=== PATIENT | female | born 1955 | race Caucasian/White ===

== ENCOUNTER 2016-07-05 09:35 | Emergency (ER) | payer MEDICAID ==
[2016-07-05] MEDS ORDERED: IBUPROFEN 600 MG TAB PO ONE (09:48)
[2016-07-05 10:57] VITALS: BP 135/58; PULSE 55; RESP 16; TEMP 97.7; O2SAT 98
--- NOTE | 2016-07-05 11:27 | DX ---
Left Wrist, Four Views 10:27 a.m. Clinical History: 60-year-old female with left wrist pain, and no known trauma. Comparison Study: None. Findings: Bone mineralization is preserved. There is no fracture, dislocation, lytic or blastic lesio n, or marginal erosion. There is some mild degenerative narrowing at the navicular-greater multangula r articulation. There is no soft tissue calcification. The pronator fat pad is not displaced. Impression: 1. There is no acute osseous abnormality. 2. Mild degenerative change at the navicular-greater multangular articulation.
--- NOTE | 2016-07-05 12:11 | UCPHY ---
H & P Time Seen by Provider: 07/05/16 10:07 Patient Type: Established HPI/ROS: This patient has achy pain to the left wrist started over the past 24 hours. 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 She complains of sharp pain that is worse with movement to the wrist. The baseline intensity is 5/10 that goes to his severe pain with flexion or extension. She states the pain is most notable on the palmar aspect of the wrist but also there is some dorsal pain. She states that feels similar to an episode of right wrist carpal tunnel syndrome that she had 15 years ago. She had a surgical decompression with improvement while living in a different state. ROS: No fevers or other constitutional symptoms. Neuro: She reports mild tingling in the radial nerve distribution long the thumb and index finger of the affected hand. No other neuro symptoms. No recent trauma. Cardiovascular: No pallor or discoloration. 5 point ROS is otherwise negative. Past Medical/Surgical History: Right-handed carpal tunnel Psychiatric history Smoking Status: Never smoked Physical Exam: Physical Exam Vital signs are normal. General: No acute distress Eyes: Pupils equal and react to light. Extraocular motions are intact. Lungs: No respiratory distress. Cardiac: Brisk capillary refill is intact throughout. Pulses are 2+ and symmetric in the affected extremity. Skin: No rash or pallor. No erythema or discoloration. Extremities: Atraumatic normal except for left wrist Left wrist: Patient has tenderness to the volar aspect/palmar aspect of the wrist with positive Tinel's and Phalen's tests. No swelling or ecchymosis. She has mild limitation in flexion extension due to pain. Neuro: Alert with no sensorimotor deficits. SHe maintains normal light touch sensory exam and motor exam despite her paresthesias Initial differential diagnosis: Carpal tunnel syndrome, radial nerve compression, bony lesion Constitutional: Initial Vital Signs Temperature (C) 36.5 C 07/05/16 09:44 Heart Rate 55 L 07/05/16 09:44 Respiratory Rate 16 07/05/16 09:44 Blood Pressure 135/58 H 07/05/16 09:44 O2 Sat (%) 98 07/05/16 09:44 O2 Delivery Mode Room Air Allergies/Adverse Reactions: egg [eggs] Allergy (Severe, Verified 07/05/16 09:47) Anaphylaxis Sulfa (Sulfonamide Antibiotics) Allergy (Severe, Verified 07/05/16 09:47) Anaphylaxis Home Medications: Medication Instructions Recorded Seroquel 06/07/14 Topamax 06/07/14 Hydrocodone/APAP 5/325 [[place] 1 - 2 tab PO Q4PRN PRN #20 tab 07/05/16 5/325 (*)] Ibuprofen [Motrin (*)] 600 mg PO Q6 PRN #30 tab 07/05/16 Medical Decision Making - Diagnostics Imaging: Wrist x-ray: Minimal DJD. Otherwise normal. Films read by the radiologist but also reviewed the film. ED Course/Re-evaluation: Patient is placed in a Velcro wrist splint I counseled her regarding carpal tunnel syndrome. She will follow up with hand surgeon for further evaluation - Data Points Medications Given: Discontinued Medications Ibuprofen (Motrin) 600 mg PO EDNOW ONE Stop: 07/05/16 09:49 Last Admin: 07/05/16 09:56 Dose: 600 mg Departure - Departure Disposition: Home, Routine, Self-Care Clinical Impression: Carpal tunnel syndrome of left wrist Condition: Good Instructions: Musculoskeletal Pain (ED) Additional Instructions: Diagnosis: Left carpal tunnel syndrome Plan: Ibuprofen, splint at all times initially Tylenol or hydrocodone/Tylenol as needed for pain control. No driving, alcohol or come hydrocodone Stool softener while on hydrocodone to prevent constipation limit activity until sx's improved. Call Dr. Campuzano-hand specialist arrange follow-up appointment for further evaluation. Referrals: [facility],. [Primary Care Provider] - As per Instructions Ayan Campuzano MD [Medical Doctor] - As per Instructions Stand Alone Forms: Work Excuse Prescriptions: Ibuprofen [Motrin (*)] 600 mg PO Q6 PRN #30 tab PRN Reason: Pain Hydrocodone/APAP 5/325 [[place] 5/325 (*)] 1 - 2 tab PO Q4PRN PRN #20 tab PRN Reason: Pain - PQRS PQRS Measurement: NA
== END 2016-07-05 12:23 | disposition home or self-care (01) ==
LOC: CED 09:35
DX: G56.02 Carpal tunnel syndrome, left upper limb (principal)
CPT/HCPCS: 73110-PO; G0463-PO; L3908

== ENCOUNTER 2016-12-30 12:19 | Observation (INO) | payer MEDICAID ==
[2016-12-30] MEDS ORDERED: ASPIRIN 81 MG CHEWABLE TAB PO ONE (12:22)
--- NOTE | 2016-12-30 12:35 | CPEKG ---
Heart Rate: 65 RR Interval: 923 P-R Interval: 180 QRSD Interval: 86 QT Interval: 420 QTC Interval: 437 P Britton: 34 QRS Britton: -38 T Wave [place]: 77 EKG Severity - BORDERLINE ECG - EKG Impression: SINUS RHYTHM EKG Impression: LEFT AXIS DEVIATION EKG Impression: BORDERLINE T ABNORMALITIES, ANT-LAT LEADS Electronically Signed By: Keny Jeong 30-Dec-2016 14:01:38
[2016-12-30] MEDS ORDERED: NITROGLYCERIN 0.4 MG BTL SL PRN ×2 (12:51→16:14)
[2016-12-30] MEDS ORDERED: NS 1,000 ML IV ONE (12:52)
--- NOTE | 2016-12-30 12:57 | EDPHY ---
H & P Stated Complaint: cp this am . tight band . woke up from sleep . "Lots of stress " Time Seen by Provider: 12/30/16 12:27 HPI/ROS: This patient was awakened at 4:30 a.m. by substernal chest pressure 6/10 intensity associated with nausea. The symptoms resolved without intervention after approximately 6 minutes and she fell back asleep but was awakened again at 6:30 a.m. with chest pressure of similar nature-substernal nonradiating more mild intensity but persistent since 12/17, currently 2/10 intensity. She has associated nausea and dyspnea that is mild. She also reports diaphoresis with her symptoms. Finally, she reports intermittent heart palpitations described as skipped beats. She drove herself here by private vehicle for further evaluation. Prior to this morning symptoms she had felt well other than increased social stressors recently in her life. ROS: Constitutional: No fevers or chills. No significant weakness. HEENT: No recent URI symptoms or other complaints Pulmonary: No coughing. No pleuritic pain. Cardiovascular: No lower extremity swelling or calf pain. Endocrine: No complaints other than diaphoresis GI: Nausea but no vomiting. No abdominal pain. : No complaints Integumentary: No significant pallor or skin rash. Neuro: No complaints new line: Psychiatric: Increase anxiety and stress recently. Complete review of symptoms is otherwise negative. Source: Patient Exam Limitations: No limitations - Personal History Tetanus Vaccine Date: within 10 years - Medical/Surgical History PMH: Patient reports may be a small heart attack 10 years ago while in [place]. She does not have any of the details of this episode. Dyslipidemia Noncompliant with her statin over the last week. Psychiatric Knee replacement The patient reports having had a technically limited (due to fibrocystic breast dz) Cardiac nuc stress at [facility] 2 year goes go prior to knee replacement. She was encouraged to have follow-up workup but never pursued this. Former IV drug user-clean for 20 years Hx Asthma: No Hx Chronic Respiratory Disease: No Hx Diabetes: No Hx Cardiac Disease: No Hx Renal Disease: No Hx Cirrhosis: No Hx Alcoholism: No Hx HIV/AIDS: No Hx Splenectomy or Spleen Trauma: No Other PMH: Depression, anxiety, ADD, very tiny , high cholesterol, arthritis. Sx : hysterectomy, pelvic reconstruction, ear tubes, ortho, tonsils. B Knee meniscus repair, R TKA, HEP C+. 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 ) - Social History Smoking Status: Never smoked Alcohol Use: None Drug Use: Other Additional Social History: Clean from IV drug abuse for 20 years - Physical Exam Exam: General Appearance: Alert, no distress. Eyes: Pupils equal and round no pallor or injection. ENT, Mouth: Mucous membranes moist. Respiratory: There are no retractions, lungs are clear to auscultation. Cardiovascular: Regular rate and rhythm. No murmur gallop rub. No peripheral edema or calf tenderness. No chest wall tenderness Gastrointestinal: Abdomen is soft and nontender, no masses, bowel sounds normal. Neurological: GCS 15 with no deficits Skin: Warm and dry, no rashes. Musculoskeletal: Neck is supple nontender. Extremities are symmetrical, full range of motion. Psychiatric: Mood and affect are currently normal. DIFFERENTIAL DIAGNOSIS: After history and physical exam differential diagnosis was considered for coronary syndrome, ME, GERD with esophageal spasm, PE, pneumonia, pneumothorax, dissecting aortic aneurysm Constitutional: Initial Vital Signs Temperature (C) 36.7 C 12/30/16 12:20 Heart Rate 70 12/30/16 12:20 Respiratory Rate 16 12/30/16 12:20 Blood Pressure 123/83 H 12/30/16 12:20 O2 Sat (%) 96 12/30/16 12:20 O2 Delivery Mode Room Air Allergies/Adverse Reactions: egg [eggs] Allergy (Severe, Verified 12/30/16 12:56) Anaphylaxis Sulfa (Sulfonamide Antibiotics) Allergy (Severe, Verified 12/30/16 12:56) Anaphylaxis Home Medications: Medication Instructions Recorded Seroquel 06/07/14 Topamax 06/07/14 Concerta 12/30/16 Medical Decision Making - Diagnostics EKG Interpretation: 12 lead EKG performed at 12:23 p.m. reveals sinus rhythm at 65 Intervals: Normal throughout [place]: P of 34, QRS of-30, T of 77 ST segments are notable for T-wave inversion in V2 and V3. Overall assessment sinus rhythm with anterior T-wave abnormalities-cannot rule out ischemic changes. No previous EKGs available for comparison. Please refer to trace master for complete read Imaging Results: Imaging Impressions Chest X-Ray 12/30/16 12:51 Impression: Normal chest x-ray. Portable chest x-ray: Normal by my interpretation ED Course/Re-evaluation: Aspirin 324 p.o. arrival IV, monitor, supple nitroglycerin I counseled patient regarding her cardiac risk factors and symptoms warranting admission. Shortly after 1:00 p.m. the patient is chest pain-free after 1 supple nitroglycerin complains of a headache, treated with Tylenol p.o. in 0.5 inch nitropaste. EKG is repeated to evaluate for interval change. Given heart rate of 60 and SBP 106, I held on a beta-oscar for this patient. A review of the patient's labs reveals negative D-dimer, normal troponin, normal electrolytes, minimal leukocytosis. Discussion: Patient with cardiac risk factors of dyslipidemia that is untreated and a family history of ME with chest pain associated with dyspnea diaphoresis and nausea with an EKG revealing T-wave inversions anteriorly concerning for possible cardiac ischemia. However, her initial troponin is negative despite several hours of symptoms. She does warrant admission for further treatment she is currently chest pain-free with nitrates and aspirin on board. I spoke with Magnolia Akhtar who accepts the patient for Dr. Kenneth Garcia-hospitalist for transfer to [facility]. I spoke with Conner, mid-level practitioner with [facility]. Cardiology will consult on the patient. I counseled the patient regarding her test results, diagnosis and plan. She remained comfortable and chest pain-free after her initial nitro - Data Points Laboratory Results: Laboratory Results 12/30/16 12:30 12/30/16 12:30 12/30/16 12/30/16 12/30/16 12:30 12:30 12:30 WBC 3.81 10^3/uL 10^3/uL (3.80-9.50) RBC 5.32 10^6/uL 10^6/uL (4.18-5.33) Hgb 15.7 g/dL g/dL (12.6-16.3) Hct 44.6 % % (38.0-47.0) MCV 83.8 fL fL (81.5-99.8) MCH 29.5 pg pg (27.9-34.1) MCHC 35.2 g/dL g/dL (32.4-36.7) RDW 12.9 % % (11.5-15.2) Plt Count 233 10^3/uL 10^3/uL (150-400) MPV 10.6 fL fL (8.7-11.7) Neut % (Auto) 62.1 % % (39.3-74.2) Lymph % (Auto) 23.4 % % (15.0-45.0) [place] % (Auto) 7.9 % % (4.5-13.0) Eos % (Auto) 4.5 % % (0.6-7.6) Baso % (Auto) 1.8 % H % (0.3-1.7) Nucleat RBC Rel Count 0.0 % % (0.0-0.2) Absolute Neuts (auto) 2.37 10^3/uL 10^3/uL (1.70-6.50) Absolute Lymphs (auto) 0.89 10^3/uL L 10^3/uL (1.00-3.00) Absolute Monos (auto) 0.30 10^3/uL 10^3/uL (0.30-0.80) Absolute Eos (auto) 0.17 10^3/uL 10^3/uL (0.03-0.40) Absolute Basos (auto) 0.07 10^3/uL 10^3/uL (0.02-0.10) Absolute Nucleated RBC 0.00 10^3/uL 10^3/uL (0-0.01) Immature Gran % 0.3 % % (0.0-1.1) Immature Gran # 0.01 10^3/uL 10^3/uL (0.00-0.10) PT 12.3 SEC SEC (12.0-15.0) INR 0.94 (0.83-1.16) APTT 27.9 SEC SEC (23.0-38.0) D-Dimer 0.36 ug/mLFEU ug/mLFEU (0.00-0.50) Sodium 142 mEq/L mEq/L (134-144) Potassium 4.1 mEq/L mEq/L (3.5-5.2) Chloride 106 mEq/L mEq/L (97-110) Carbon Dioxide 22 mEq/l mEq/l (22-31) Anion Gap 14 mEq/L mEq/L (8-16) BUN 17 mg/dL mg/dL (7-23) Creatinine 1.0 mg/dL mg/dL (0.6-1.0) Estimated GFR 56 Glucose 84 mg/dL mg/dL (70-100) Calcium 9.5 mg/dL mg/dL (8.5-10.4) Troponin I < 0.012 ng/mL ng/mL (0-0.034) Medications Given: Discontinued Medications Acetaminophen (Tylenol) 975 mg PO EDNOW ONE Stop: 12/30/16 13:03 Last Admin: 12/30/16 13:08 Dose: 975 mg Aspirin (Aspirin) 324 mg PO EDNOW ONE Stop: 12/30/16 12:23 Last Admin: 12/30/16 12:28 Dose: 324 mg Sodium Chloride (Ns) 1,000 mls @ 0 mls/hr IV ONCE ONE PRN Reason: Wide Open Stop: 12/30/16 12:53 Last Admin: 12/30/16 12:55 Dose: 1,000 mls Metoprolol Tartrate (Lopressor Injection) 5 mg IVP EDNOW ONE Stop: 12/30/16 13:25 Last Admin: 12/30/16 13:26 Dose: Not Given Nitroglycerin (Nitrostat) 0.4 mg SL Q5M PRN PRN Reason: Chest Pain Stop: 12/30/16 13:02 Last Admin: 12/30/16 12:55 Dose: 0.4 mg Nitroglycerin (Nitro-Bid 2%) 0.5 inch TP EDNOW ONE Stop: 12/30/16 13:03 Last Admin: 12/30/16 13:09 Dose: 0.5 inch Departure - Departure Disposition: [facility] Inpatient Acute Clinical Impression: Acute chest pain, Anterior T wave inversion Condition: Fair
[2016-12-30 13:00] LABS: % IMMATURE GRANULYOCYTES 0.3 % (0.0-1.1); ABSOLUTE IMMATURE GRANULOCYTES 0.01 10^3/uL (0.00-0.10); ADD DIFF? NO; ADD MORPH? NO; ADD SCAN? NO; ATYPICAL LYMPHOCYTE FLAG 10 (0-99); FRAGMENT RBC FLAG 0 (0-99); HEMATOCRIT 44.6 % (38.0-47.0); HEMOGLOBIN 15.7 g/dL (12.6-16.3); LEFT SHIFT FLG 0 (0-99); LIPEMIA HEMOLYSIS FLAG 90 (0-99); MEAN CELL HEMOGLOBIN 29.5 pg (27.9-34.1); MEAN CELL HEMOGLOBIN CONCENTR. 35.2 g/dL (32.4-36.7); MEAN CELL VOLUME 83.8 fL (81.5-99.8); MEAN PLATELET VOLUME 10.6 fL (8.7-11.7); PLATELET CLUMPS FLAG 0 (0-99); PLATELET COUNT 233 10^3/uL (150-400); RED BLOOD CELL COUNT 5.32 10^6/uL (4.18-5.33); RED CELL DISTRIBUTION WIDTH 12.9 % (11.5-15.2)
[2016-12-30 13:01] LABS: APTT 27.9 SEC (23.0-38.0)
[2016-12-30 13:02] LABS: ANION GAP 14 mEq/L (8-16); CALCIUM 9.5 mg/dL (8.5-10.4); CARBON DIOXIDE 22 mEq/l (22-31); CHLORIDE 106 mEq/L (97-110); GLOMERULAR FILTRATION RATE 56; GLUCOSE 84 mg/dL (70-100); POTASSIUM 4.1 mEq/L (3.5-5.2); SODIUM 142 mEq/L (134-144)
[2016-12-30] MEDS ORDERED: NITROGLYCERIN 2% 1 GM PACKET TP ONE (13:02)
[2016-12-30] MEDS ORDERED: ACETAMINOPHEN 325 MG TAB PO ONE (13:02)
--- NOTE | 2016-12-30 13:08 | CPEKG ---
Heart Rate: 56 RR Interval: 1071 P-R Interval: 188 QRSD Interval: 92 QT Interval: 440 QTC Interval: 425 P Readfield: 14 QRS Readfield: -34 T Wave [place]: 78 EKG Severity - BORDERLINE ECG - EKG Impression: SINUS RHYTHM EKG Impression: LEFT AXIS DEVIATION EKG Impression: BORDERLINE T ABNORMALITIES, ANT-LAT LEADS Electronically Signed By: Keny Jeong 30-Dec-2016 14:01:22
[2016-12-30 13:10] LABS: INR 0.94 (0.83-1.16); PROTIME(PATIENT) 12.3 SEC (12.0-15.0)
[2016-12-30 13:14] LABS: TROPONIN I < 0.012 ng/mL (0-0.034)
[2016-12-30] MEDS ORDERED: METOPROLOL TARTRATE 5 MG/5 ML INJ IVP ONE (13:24)
[2016-12-30] MEDS ORDERED: ONDANSETRON DISINTEGRATING 4 MG TAB PO PRN (16:18)
[2016-12-30] MEDS ORDERED: ONDANSETRON 4 MG/2 ML VIAL IVP PRN (16:18)
[2016-12-30] MEDS ORDERED: METHYLPHENIDATE HCL PO PRN (16:20)
--- NOTE | 2016-12-30 16:24 | PDGENHP ---
History and Physical - Chief Complaint Acute chest pain - History of Present Illness PCP: [facility] HPI: 61 yo F p/w acute chest pain characterized as Bandlike pain located in the substernal area with associated nausea, dyspnea, diaphoresis, palpitations. Pain onset was 4:30 a.m. the day of this presentation and occurred at rest. Duration was approximately 6 minutes and then it subsided without any intervention. The pain recurred at 6:30 a.m. then has been fairly constant throughout the day until was alleviated by nitroglycerin paste at urgent care. Pain seems to be exacerbated by and accompanied by significant anxiety which the patient has been experiencing over the past 48 hours. The patient has otherwise been taking a fairly regular supply of nonsteroidal anti-inflammatory medications to help her deal with the stress of the past 48 hours. History Information - Allergies/Home Medication List Allergies/Adverse Reactions: egg [eggs] Allergy (Severe, Verified 12/30/16 12:56) Anaphylaxis Sulfa (Sulfonamide Antibiotics) Allergy (Severe, Verified 12/30/16 12:56) Anaphylaxis Home Medications: QUEtiapine FUMARATE [Seroquel 25 mg (*)] 25 mg PO HS 06/07/14 [Last Taken ] Topiramate [Topamax 100MG (*)] 100 mg PO HS 06/07/14 [Last Taken 12/29/16] METHYLPHENIDATE HCL [Concerta 18 mg] 18 mg PO DAILY PRN 12/30/16 [Last Taken Unknown] I have personally reviewed and updated: family history, medical history, social history, surgical history - Past Medical History coronary artery disease ( Abnormal nuclear stress test in 2016) Additional medical history: recurrent urinary tract infections, most recently treated 1 month ago. Chronic back pain. Hyperlipidemia. Reported myocardial infarction 10 years ago without cardiac catheterization at that time, normal ejection fraction at that time. Significant anxiety disorder - Surgical History Additional surgical history: total knee replaced - Family History Additional family history: mother with myocardial infarction prior to the age of 65, also allergic to IV contrast dye - Social History Smoking Status: Never smoked Alcohol Use: Sober Drug Use: Other ( patient reports significant drug use history including methamphetamine but she has been sober for many years) Review of Systems ROS: 10pt was reviewed & negative except for what was stated in HPI & below Cardiac: Reports: chest pain, palpitations, other ( diaphoresis) Respiratory: Reports: other ( dyspnea) Physical Exam Temp Pulse Resp BP Pulse Ox 36.7 C 64 16 102/72 96 12/30/16 14:28 12/30/16 14:28 12/30/16 14:28 12/30/16 14:28 12/30/16 14:28 Constitutional: appears nourished, not in pain, No uncomfortable Eyes: PERRL, anicteric sclera, EOMI Ears, Nose, Mouth, Throat: moist mucous membranes, hearing normal, ears appear normal, no oral mucosal ulcers Cardiovascular: regular rate and rhythym, no murmur, rub, or gallop, No edema Respiratory: no respiratory distress, no rales or rhonchi, clear to auscultation Gastrointestinal: normoactive bowel sounds, soft, non-tender abdomen, no palpable masses Skin: warm, normal color, no rashes or abrasions, no fluctuance, no induration, other ( many tattoos), No mottled Neurologic: AAOx3, sensation intact bilaterally, No facial droop Psychiatric: not encephalopathic, anxious, other ( speech occasionally pressured , redirectable), No agitated Lab Data & Imaging Review 12/30/16 12:30 12/30/16 12:30 WBC 3.81 10^3/uL (3.80-9.50) 12/30/16 12:30 RBC 5.32 10^6/uL (4.18-5.33) 12/30/16 12:30 Hgb 15.7 g/dL (12.6-16.3) 12/30/16 12:30 Hct 44.6 % (38.0-47.0) 12/30/16 12:30 MCV 83.8 fL (81.5-99.8) 12/30/16 12:30 MCH 29.5 pg (27.9-34.1) 12/30/16 12:30 MCHC 35.2 g/dL (32.4-36.7) 12/30/16 12:30 RDW 12.9 % (11.5-15.2) 12/30/16 12:30 Plt Count 233 10^3/uL (150-400) 12/30/16 12:30 MPV 10.6 fL (8.7-11.7) 12/30/16 12:30 Neut % (Auto) 62.1 % (39.3-74.2) 12/30/16 12:30 Lymph % (Auto) 23.4 % (15.0-45.0) 12/30/16 12:30 [place] % (Auto) 7.9 % (4.5-13.0) 12/30/16 12:30 Eos % (Auto) 4.5 % (0.6-7.6) 12/30/16 12:30 Baso % (Auto) 1.8 % (0.3-1.7) H 12/30/16 12:30 Nucleat RBC Rel Count 0.0 % (0.0-0.2) 12/30/16 12:30 Absolute Neuts (auto) 2.37 10^3/uL (1.70-6.50) 12/30/16 12:30 Absolute Lymphs (auto) 0.89 10^3/uL (1.00-3.00) L 12/30/16 12:30 Absolute Monos (auto) 0.30 10^3/uL (0.30-0.80) 12/30/16 12:30 Absolute Eos (auto) 0.17 10^3/uL (0.03-0.40) 12/30/16 12:30 Absolute Basos (auto) 0.07 10^3/uL (0.02-0.10) 12/30/16 12:30 Absolute Nucleated RBC 0.00 10^3/uL (0-0.01) 12/30/16 12:30 Immature Gran % 0.3 % (0.0-1.1) 12/30/16 12:30 Immature Gran # 0.01 10^3/uL (0.00-0.10) 12/30/16 12:30 PT 12.3 SEC (12.0-15.0) 12/30/16 12:30 INR 0.94 (0.83-1.16) 12/30/16 12:30 APTT 27.9 SEC (23.0-38.0) 12/30/16 12:30 D-Dimer 0.36 ug/mLFEU (0.00-0.50) 12/30/16 12:30 Sodium 142 mEq/L (134-144) 12/30/16 12:30 Potassium 4.1 mEq/L (3.5-5.2) 12/30/16 12:30 Chloride 106 mEq/L (97-110) 12/30/16 12:30 Carbon Dioxide 22 mEq/l (22-31) 12/30/16 12:30 Anion Gap 14 mEq/L (8-16) 12/30/16 12:30 BUN 17 mg/dL (7-23) 12/30/16 12:30 Creatinine 1.0 mg/dL (0.6-1.0) 12/30/16 12:30 Estimated GFR 56 12/30/16 12:30 Glucose 84 mg/dL (70-100) 12/30/16 12:30 Calcium 9.5 mg/dL (8.5-10.4) 12/30/16 12:30 Troponin I < 0.012 ng/mL (0-0.034) 12/30/16 12:30 Visualized and Interpreted Chest x-ray results: Yes Chest X-Ray results: no infiltrate Visualized and Interpreted EKG results: Yes EKG Interpretation: Positive for: other ( T-wave inversions in lead V2 through V4) Assessment & Plan Assessment: 61-year-old female presents with acute chest pain in the setting of known abnormal nuclear stress test, reported previous [place] Plan: 1. Chest pain. Acute, new problem this provider, further workup indicated. High risk for acute coronary syndrome and unstable angina given abnormal new could and reported [place], responded well to nitroglycerin paste -reviewed outside records including 07/24/2015 nuclear medicine MPI report demonstrating small distal area of reducible and ischemia -discussed with Conner Stafford from Cardiology, he has reported to me that the cardiology service will plan on cardiac catheterization tomorrow a.m., sooner if troponins positive or if chest pain recurrent -continue to cycle troponins, monitor on telemetry -she has received aspirin, beta-blockers ordered, continue nitropaste -will require pretreatment for the cardiac catheterization given her significant allergy to IV contrast dye -get a.m. lipid panel and hemoglobin A1c 2. Anxiety disorder. Chronic, significant, may be contributing to and exacerbating her current presentation -patient has good insight, recommend that she continue to follow up with her outpatient mental health provider -continue home medications Diet. Cardiac, NPO after midnight Prophylaxis. Moderate risk patient, Lovenox 40 Code. Full Disposition. Anticipated discharge is 12/31/2016, pending further workup as outlined above.
[2016-12-30] MEDS: ACETAMINOPHEN 325 MG TAB PO PRN (20:39)
--- NOTE | 2016-12-30 21:18 | GCON ---
[f rep st] CONSULTATION CARDIOLOGY CONSULTATION DATE OF CONSULTATION: 12/30/2016 REASON FOR CONSULTATION: Abnormal electrocardiogram, chest pressure, known history of coronary artery disease. HISTORY OF PRESENT ILLNESS: The patient is a 61-year-old female who has been seen by our practice in the past. She reports a previous history of coronary artery disease and hyperlipidemia. She reports also reports a past history of myocardial infarction and CAD when she lived in in [place] 10 years ago, but denies of ever actually having a coronary angiogram or PCI. She did see Cardiology while she was out there. She was also noted (when last seen in our office) of undergoing exercise treadmill MPI study on July 24, 2015, which showed no significant ST shifts with exercise, but perfusion imaging did show a small-size, mild-intensity, reversible, gth-ea-caicwi, anterior deficit consistent with ischemia. She had no transient ischemic dilation, and her ejection fraction was normal at 68%, with no wall motion abnormalities. She was supposed to follow up with our practice, which she reports she never did. She reports today, waking at 4:30 this morning, reporting a sudden onset of chest pressure, reporting it as a "bandlike sensation" around her chest. It was not significantly severe and she was able to go back to sleep, reporting waking up again around 7:30 this morning, with pressure there with some mild nausea and shortness of breath. She was able to get up, and proceed on with her day, reporting that she has been under great deal of family stress, but after the pain did not "relieve" after a bit, and with her past medical history , she felt it was best for her to be further evaluated. She went to the [facility]. There, she had an electrocardiogram done, showing sinus rhythm with noted inverted T-waves in V1 through V3, left axis deviation. No acute ST elevation noted. She was given sublingual nitroglycerin, and the pain soon resolved. Electrocardiogram repeated after nitroglycerin did show mild improvement in T-wave inversion in V1 through V3, with flattened T-waves in the lateral leads. Her initial troponin was negative at less than 0.012. A D- dimer was less was 0.36. At that point, nitro paste was applied, she reported mild headache, but has had no further episodes of chest pressure. She was sent over to [facility] and has been admitted to the PCU telemetry floor. At current time, the patient reports no further episodes of chest pressure, pain, but does report mild headache. She reports yesterday of having episodes of nausea and diaphoresis, with occasional vomiting. She initially thought this was due to stress, and felt that it had mostly cleared up from yesterday. She reports no recent fevers chills or night sweats. She denies any history of palpitations, orthopnea, PND, lightheadedness, peripheral edema, sudden weight gain, near-syncope, or syncopal events. She denies any history suggestive of TIA or CVA. As stated above, she reports significant family stress, reporting a recent history of pssqdao-ol-iil dying of heart disease and finding out that her fzavme-cc-das has recently been admitted to the hospital. The patient has significant cardiac risk factors that include age, hyperlipidemia, and family history of coronary artery disease, reporting mother had her first NJ at 65. She denies any history of diabetes, smoking, peripheral vascular disease. PAST MEDICAL HISTORY: 1. Questionable NJ 10 years ago in [place]. 2. Adult onset attention deficit order. 3. Hepatitis C. 4. Hyperlipidemia. 5. Anxiety and insomnia. 6. 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 PAST SURGICAL HISTORY: Total right knee done in July of 2015, left wrist metacarpal surgery done in October of 2016, hysterectomy. FAMILY HISTORY: The patient reports a significant family history of coronary artery disease, reporting mother had an NJ at age 65. Mother also has a history of carotid artery disease and previous PCI. She reports her father she did not know well, but reports had some type of heart disease. Also , a half brother who had heart disease 10 years ago. SOCIAL HISTORY: As mentioned above, patient reports she is a recovering heroin and meth user, reporting she has been clean for 20 years. She denies any smoking history. She reports occasional alcohol use, rarely. She is , she has 3 adult children, all alive and well, with a daughter with a history of bipolar, and a middle son with a history of GI problems. She currently works for [employer] in [place]. She lives with her daughter in a basement apartment. She denies any recent illicit drug use. ALLERGIES: The patient reports allergies to eggs, sulfa, and after further questioning, she does report a possible iodine allergy. MEDICATIONS: At home include Topamax 100 mg p.o. q.h.s., 25 mg p.o. q.h.s., Concentra 18 mg p.o. daily p.r.n. The patient also reports a history of being on statin therapy, but reports she has been very compliant with this. REVIEW OF SYSTEMS: A 10-point review of systems was done on the patient. All negative, except as mentioned above. PHYSICAL EXAMINATION TODAY: GENERAL APPEARANCE: A short-statured, mildly obese , female. She is alert and oriented to person, place, time, and situation. Appears to be in no acute distress at this time. CURRENT VITAL SIGNS: Blood pressure 102/70, heart rate 64 sinus rhythm on the monitor, respirations 96% on room air, temperature 36.7 degrees Celsius. HEENT: Head is normocephalic. Lips and tongue are pink and moist with no signs of cyanosis. Conjunctivae pink. NECK: Trachea is midline. +2 carotid pulses bilaterally. No auscultated bruits. No jugular vein distention. RESPIRATORY: Lungs clear to auscultation. No rhonchi, rales or wheezes. No accessory muscle use. No intercostal muscle retraction noted. CARDIAC: Regular rate, regular rhythm, S1, S2, no S3, S4, gallops, rubs or murmur noted. ABDOMEN: Soft, nontender, bowel sounds x4 quadrants. No organomegaly, no palpable masses. SKIN: [place], warm, dry, no cyanosis, no clubbing, no peripheral edema. VASCULAR: +2 carotids bilateral, +2 radials bilateral, +2 dorsal pedal and posterior tibial pulses bilateral. LABORATORY STUDIES: Laboratory studies drawn today show WBC of 3.81, hemoglobin of 15.7, hematocrit of 44.6, platelet count 233. INR 0.94, D-dimer 0.36. Sodium of 142, potassium 4.1, chloride 106, CO2 22, BUN 17, creatinine 1.0, glucose 84. Calcium 9.5. Troponin less than 0.012. LAB STUDIES: Electrocardiograms as mentioned above. Chest x-ray showing no acute cardiopulmonary process. Patient's most recent nuclear stress test done on July 24, 2015, showed no significant ST shifts suggestive of ischemia with exercise, MPI study did show a small-size, medium-intensity, reversible, gkd-bb-wcznks, anterior deficit consistent with ischemia. No transient ischemic dilation, normal LV systolic function, with no wall motion abnormalities, EF of 68%. Reviewing past records in our EMR, we found an echocardiogram note done [place] [facility] dated March 06, 2014, showing LV size is normal, EF of 65% with no evidence of impaired relaxation, mild MR, mild TR, pulmonary artery pressure . Preliminary echocardiogram showing normal ejection fraction, with questionable inferolateral hypokinesis. ASSESSMENT AND PLAN: 1. Chest pressure: A 61-year-old female with a reported history of coronary artery disease, but reports never undergoing angiogram. History of hyperlipidemia and family history of cardiac disease. Reporting episode of chest pressure this morning, with waking her up initially, and repeated again later this afternoon. Also reporting episodes of nausea and diaphoresis yesterday. Reporting, once arrived to the Emergency Department, symptoms resolved with nitroglycerin. She is noted to have an abnormal MPI study (in which she has never followed up with Cardiology) from July of 2015, showing small-size, mid-intensity, reversible, gly-pa-feqawu anterior deficit consistent with ischemia. EKG shows no acute ST elevation. Initial troponin negative. Preliminary echocardiogram showing possible hypokinesis of inferior lateral wall. At this time, it is felt best that we cycle her troponins. She has already had an aspirin. She is currently pain-free. We will make her n.p.o. after midnight, and proceed for her to undergo cardiac catheterization in the morning for further evaluation. Due to possible iodine allergy, we will premedicate her with Benadryl. She has been noted to be bradycardic with heart rates in the 50s. I do not feel that she has adequate candidate for beta blockers at the current time and we will hold off on starting her on anything at this time. We will continue with nitro paste. If her pain does worsen and her troponins do not elevated, she does not need to be fully anticoagulated at this time. But if her troponins do elevate, I would consider then starting her on a heparin drip. If her symptoms worsen throughout the night, or she has significant EKG changes, we can always make her cardiac catheterization more urgent. 2. History of hyperlipidemia: Patient reports a history of hyperlipidemia and reports she had been on statin therapy in the past, but has been noncompliant. We will have her get a fasting lipid and liver panel done tomorrow. 3. History of hepatitis C: The patient reports it has been multiple years since having a lipid panel done. We will have her get a CMP panel done in the morning. Thank you for this consultation. She will remain on telemetry floor overnight. Further recommendations will come post cardiac catheterization. Dr. Gomez of Hospital Services has been notified of our plan for a pending catheterization in the a.m.. /[id number]/MODL MTDD
[2016-12-30] MEDS: TEMAZEPAM 15 MG CAP PO PRN (22:52)
[2016-12-30] MEDS: TOPIRAMATE 100 MG TAB PO SCH (22:53)
[2016-12-30] MEDS: QUEtiapine FUMARATE 25 MG TAB PO SCH (22:53)
[2016-12-31 05:14] LABS: INR 1.1 (0.83-1.16); PROTIME(PATIENT) 14.1 SEC (12.0-15.0)
[2016-12-31 05:15] LABS: APTT 29.2 SEC (23.0-38.0)
[2016-12-31 05:30] LABS: ALANINE AMINOTRANSFERASE 28 IU/L (9-52); ALBUMIN 3.5 g/dL (3.5-5.0); ALKALINE PHOSPHATASE 63 IU/L (38-126); ANION GAP 9 mEq/L (8-16); ASPARTATE AMINOTRANSFERASE 16 IU/L (14-46); BILIRUBIN,TOTAL 0.7 mg/dL (0.1-1.4); CARBON DIOXIDE 18 mEq/l (22-31); CHLORIDE 115 mEq/L (97-110); CHOLESTEROL 257 mg/dL (140-220); CHOLESTEROL/HDL RATIO 6.43 RATIO (1.00-4.44); CREATININE 1.1 mg/dL (0.6-1.0); GLOMERULAR FILTRATION RATE 50; GLUCOSE 92 mg/dL (70-100); HIGH DENSITY LIPOPROTEIN 40 mg/dL (40-85); LDL/HDL RATIO 4.55 RATIO (1.00-3.22); LOW DENSITY LIPOPROTEIN 182 mg/dL (80-100); MAGNESIUM 2.2 mg/dL (1.6-2.3); NON-HIGH DENSITY LIPOPROTEIN 217 mg/dL (90-129); POTASSIUM 4.2 mEq/L (3.5-5.2); SODIUM 142 mEq/L (134-144); TOTAL PROTEIN 5.5 g/dL (6.3-8.2); TRIGLYCERIDE 175 mg/dL (35-135); VERY LOW DENSITY LIPOPROTEINS 35 mg/dL (8-25)
[2016-12-31 05:32] LABS: TROPONIN I < 0.012 ng/mL (0-0.034)
[2016-12-31] MEDS ORDERED: diphenhydrAMINE 25 MG CAP PO ONE (06:00)
[2016-12-31] MEDS ORDERED: NS 1,000 ML IV ONE (06:00)
[2016-12-31] MEDS ORDERED: DIAZEPAM 5 MG TAB PO ONE (06:00)
[2016-12-31] MEDS ORDERED: ASPIRIN EC 325 MG TAB PO ONE ×2 (06:00→10:17)
[2016-12-31] MEDS: ENOXAPARIN 40 MG/0.4 ML SYR SC SCH (07:23)
[2016-12-31] MEDS ORDERED: FAMOTIDINE 20 MG/NACL 50 ML IV ONE (08:00)
[2016-12-31] MEDS ORDERED: FAMOTIDINE 20 MG in NS 100 ML IV ONE (08:00)
[2016-12-31] MEDS ORDERED: methylPREDNISolone SOD SUCC 125 MG/2 ML VIAL IVP ONE (08:00)
--- NOTE | 2016-12-31 08:36 | ECHO ---
[id number] + + [address] : : [place] [address] : : [phone] + + Adult Echocardiographic Report + + :Name: JENNIFER LIMA LStudy Date: 12/30/2016 03:51 PM : : Hospital Admission Number: [id number] : :: 1955 Gender: Female Height: 65 in : :Age: 61 yrs Race: WH Weight: 180 lb : :Reason For Study: Chest pain/Ekg Changes : : BSA: 1.9 meters2: :History: CAD : + + MMode/2D Measurements \T\ Calculations IVSd: 1.3 cm LVIDd: 4.0 cm FS: 40.5 % Ao root diam: LVPWd: 0.99 cm LVIDs: 2.4 cm EDV(Teich): 3.2 cm 69.9 ml LA dimension: ESV(Teich): 2.7 cm 19.7 ml EF(Teich): 71.7 % LVLd ap4: 7.4 cm SV(MOD-sp4): EDV(MOD-sp4): 51.0 ml 76.0 ml LVLs ap4: 6.0 cm ESV(MOD-sp4): 25.0 ml EF(MOD-sp4): 67.1 % Normal Measurement Values: + + :LVIDd (3.5-5.7cm) IVSd (0.6-1.1cm) LVPWd (0.6-1.1cm) Aortic Root (2.0-3.7cm)Left Atrium (1.5-4.0cm): :LV Vol(d) (76-115ml) LV Vol(s) (29-48ml) Ejec Fraction (50-65%)PV [place] (0.6- 1.2m/s) TV [place] (0.4-1.0m/s) : :MV E [place] (0.8-1.0m/s)MV A [place] (0.3-1.0m/s)LVOT [place] (0.7-1.2m/s) Asc Ao [place] ( 0.9-1.8m/s) : + + Doppler Measurements \T\ Calculations MV E max candelario: 83.9 cm/sec Ao V2 max: 127.6 cm/sec MV A max candelario: 58.2 cm/sec Ao max P.5 mmHg MV E/A: 1.4 Left Ventricle The left ventricle is normal in size. There is mild asymmetric left ventricular hypertrophy. Left ventricular systolic function is normal. Ejection Fraction = 65-70%. The left ventricular wall motion is normal. Right Ventricle The right ventricle is normal in size and function. Atria The left atrial size is normal. Right atrial size is normal. The interatrial septum is intact with no evidence for an atrial septal defect. Mitral Valve The mitral valve is normal in structure and function. There is no evidence of mitral valve prolapse. There is no mitral valve stenosis. Tricuspid Valve Normal tricuspid valve. There is trace tricuspid regurgitation. Aortic Valve The aortic valve opens well. There is no aortic stenosis. There is no aortic insufficiency. Pulmonic Valve The pulmonic valve is normal in structure and function. There is no pulmonic valvular regurgitation. Great Vessels The aortic root is normal size. Pericardium/Pleural There is no pericardial effusion. There is a fat pad seen. Conclusion A complete two-dimensional transthoracic echocardiogram was performed (2D, M-mode, Doppler and color flow Doppler). There is mild asymmetric left ventricular hypertrophy. Left ventricular systolic function is normal. Ejection Fraction = 65-70%. The left ventricular wall motion is normal. There is trace tricuspid regurgitation. There is a fat pad seen. No prior echo Final Reading Physician: Dr Lizeth Russell electronically signed on 12/31/2016 08:34 AM Ordering Physician: Conner Stafford Performed By: Marisol Gagnon RDCS
--- NOTE | 2016-12-31 09:01 | CPEKG ---
Heart Rate: 46 RR Interval: 1304 P-R Interval: 208 QRSD Interval: 88 QT Interval: 464 QTC Interval: 406 P Wellington: 10 QRS [place]: -38 T Wave [place]: 44 EKG Severity - OTHERWISE NORMAL ECG - EKG Impression: SINUS BRADYCARDIA EKG Impression: LEFT AXIS DEVIATION EKG Impression: Some diffuse T-wave flattening EKG Impression: No significant change from December 30, 2016 Electronically Signed By: Skinny Doherty 31-Dec-2016 09:46:35
[2016-12-31] MEDS ORDERED: fentaNYL 100 MCG/2 ML INJ ONE ×2 (09:09→11:08)
[2016-12-31] MEDS ORDERED: LIDOCAINE 1% 300 MG/30 ML SDV ONE (09:09)
[2016-12-31] MEDS ORDERED: MIDAZOLAM 2 MG/2 ML VIAL ONE ×2 (09:09→11:08)
[2016-12-31] MEDS ORDERED: HEPARIN 10,000 UNIT/10 ML MDV ONE (09:09)
[2016-12-31] MEDS ORDERED: IOPAMIDOL (ISOVUE-370) 150 ML BTL IV ONE (09:10)
[2016-12-31] MEDS ORDERED: VERAPAMIL 5 MG/2 ML VIAL ONE (09:10)
[2016-12-31] MEDS ORDERED: methylPREDNISolone SOD SUCC 125 MG/2 ML VIAL ONE (10:11)
[2016-12-31] MEDS ORDERED: DIAZEPAM 5 MG TAB ONE (10:17)
[2016-12-31 10:20] LABS: HEMOGLOBIN A1C 4.9 % (4.0-6.0)
--- NOTE | 2016-12-31 11:39 | PDDXCAT ---
Diagnostic Cath Note - . Date: 12/31/16 [employer] Front Desk Clerk: Keo Indication: other (Chest pain, abnormal ECG, and self-reported cardiac episode over 10 years ago.) - Procedure Access: right groin (Initially attempted from right wrist but could access rardial artery.) Procedure: left heart catheterization, coronary angiography, left ventriculogram - Materials Left Heart Cath size: 6F Left Heart Cath materials: standard multipack (JL4, JR4, pigtail) - Findings-Left Heart Catheterization LM: Angiographically normal. LAD: Angiographically normal. LCX: Angiographically normal. RCA: Angiographically normal. LVEF: 60% Wall motion: Normal. Complications: None Estimated blood loss: <50ml Closure method: Angioseal Assessment: 1) Normal LV systolic function. 2) Normal coronary arteries. Patient Problems: Problems Problem Status Onset Acute chest pain Acute Anterior T wave inversion Acute Urinary tract infection Acute
--- NOTE | 2016-12-31 12:34 | PDDCSUM ---
Discharge Summary Discharge Summary: Dates of service 12/30-12/31/16 Discharge dx: # chest pain # anxiety # HLD # hep c # hx of polysubstance abuse in remission x 20 years Consultations: cardiology Procedures: cardiac angiography Hospital course by problem: # chest pain: with prior abnormal stress test, clean cardiac cath performed which was notable for normal EF and clear coronary arteries. Pain has resolved. In setting of significant psychosocial stressors and anxiety and likely related to same # anxiety: as above, patient is under the care of a therapist and plans to f/u with them after dc # HLD: will defer initiation and management of lipid lowering agent to PCP--LDL 182 # hx of hep c/hx of polysubstance abuse in remission dc home f/u with pcp > 35 min spent in dc more than half in face to face counseling of patient and her son regarding f/u care plans
[2016-12-31] MEDS: TOPIRAMATE 100 MG TAB PO SCH (21:42)
[2016-12-31] MEDS: QUEtiapine FUMARATE 25 MG TAB PO SCH (21:42)
[2016-12-31] MEDS: ACETAMINOPHEN 325 MG TAB PO PRN (21:46)
[2016-12-31] MEDS: TEMAZEPAM 15 MG CAP PO PRN (21:46)
[2017-01-01 05:36] VITALS: RESP 17
[2017-01-01 08:07] VITALS: BP 120/76; PULSE 61; TEMP 97.7; O2SAT 93
[2017-01-01] MEDS: ENOXAPARIN 40 MG/0.4 ML SYR SC SCH (08:26)
--- NOTE | 2017-01-01 09:48 | PDDCSUM ---
Discharge Summary Discharge Summary: Dates of service 12/30-01/01/17 Dates of service 12/30-12/31/16 Discharge dx: # chest pain # anxiety # wrist/arm numbness pain sp attempted radial artery cath # HLD # hep c # hx of polysubstance abuse in remission x 20 years Consultations: cardiology Procedures: cardiac angiography Hospital course by problem: # chest pain: with prior abnormal stress test, clean cardiac cath performed which was notable for normal EF and clear coronary arteries. Pain has resolved. In setting of significant psychosocial stressors and anxiety and likely related to same # wrist/arm numbness and pain: s/p attempted radial artery cath, today pain/ numbness resolved, neurovascularly intact, no significant hematoma # anxiety: as above, patient is under the care of a therapist and plans to f/u with them after dc # HLD: will defer initiation and management of lipid lowering agent to PCP--LDL 182 # hx of hep c/hx of polysubstance abuse in remission dc home f/u with pcp > 35 min spent in dc more than half in face to face counseling of patient and coordinating care with specialist
--- NOTE | 2017-01-01 09:50 | HOSPPROG ---
Hospitalist Progress Note Assessment/Plan: 61 yo F with PMH of anxiety, remote PSA in remission and HLD presenting with chest pain # chest pain: with prior abnormal stress test, clean cardiac cath performed which was notable for normal EF and clear coronary arteries. Pain has resolved. In setting of significant psychosocial stressors and anxiety and likely related to same. Prior to dc patient developed numbness and pain in her right wrist and arm in area where radial artery had been accessed for attempted cath--decision made to monitor her overnight. Today pain/numbness resolved completely. # anxiety: as above, patient is under the care of a therapist and plans to f/u with them after dc # HLD: will defer initiation and management of lipid lowering agent to PCP--LDL 182 # hx of hep c/hx of polysubstance abuse in remission observation Subjective: went to cath this am, no further chest pain, did develop arm numbness and pain Objective: Vital Signs Temp Pulse Resp BP Pulse Ox 36.5 C 61 17 120/76 93 01/01/17 08:06 01/01/17 08:06 01/01/17 08:06 01/01/17 08:06 01/01/17 08:06 Laboratory Results 12/31/16 04:21 12/31/16 01/01/17 01/02/17 05:59 05:59 05:59 Intake Total 1660 250 Output Total 300 Balance 1660 -50 PT 14.1 SEC (12.0-15.0) 12/31/16 04:21 INR 1.10 (0.83-1.16) 12/31/16 04:21 awake alert nad anicteric op clear rrr no mrg cta b soft nt nd no cce warm dry well perfused oriented appropriate - Time Spent With Patient Time Spent with Patient: greater than 35 minutes Time Spent with Patient: Greater than 35 minutes spent on this patients care, greater than 50% of time spent counseling, educating, and coordinating care regarding the above mentioned plan. ICD10 Worksheet Patient Problems: Problems Problem Status Onset Acute chest pain Acute Anterior T wave inversion Acute Urinary tract infection Acute
--- NOTE | 2017-01-01 10:25 | PDCARPN ---
Cardiology Progress Note Assessment/Plan: Assessment: Chest pain s/p cardiac angiogram. Plan: Home today. F/u in clinic for cath site evaluation, in one week. 01/01/17 10:24 Reviewed/Discussed With: hospitalist, multidisciplinary team Time Spent With Patient: 20 minutes Face to face and chart review Objective: Vital Signs (8 Hrs) Temp Pulse Resp BP Pulse Ox 01/01/17 08:06 36.5 C 61 17 120/76 93 01/01/17 05:35 36.9 C 52 L 17 139/67 H 97 Intake/Output (24 Hrs) 12/31/16 01/01/17 01/02/17 05:59 05:59 05:59 Intake Total 1660 250 Output Total 300 Balance 1660 -50 Intake: Oral (ml) 660 250 IV Infused (ml) 1000 Output: Urine (ml) 300 Toilet 300 Other: Weight 83.5 kg Intake Quantity Yes Yes Sufficient Number of Voids 1 Toilet 2 2 Result Diagrams: 12/30/16 12:30 12/31/16 04:21 Cardiac Labs: Cardiac Lab Results (72 Hrs) 12/31/16 12/30/16 04:21 17:48 Troponin I < 0.012 < 0.012 - Physical Exam Constitutional: no apparent distress Cardiovascular: regular rate and rhythm, no murmurs, no rubs Peripheral Pulses: 2+: dorsalis-pedis (R), dorsalis-pedis (L) Respiratory: clear to auscultate bilat, no crackles, no wheezes Genitourinary: other (R groin site entact-no bldg,tenderness,ecchymosis. Fem Pulse 2+) Skin: warm, no edema, other (R-wrist cath access site non-tender, mild ecchymosis, no bleeding. R/U pulse 2+, good cap.ReFill) ICD10 Worksheet Patient Problems: Problems Problem Status Onset Acute chest pain Acute Anterior T wave inversion Acute Urinary tract infection Acute
== END 2017-01-01 10:57 | disposition home or self-care (01) ==
LOC: CED 12:19 → CEDHOLD 13:33 → INTOOBSV 13:33 → F2W 15:00
PROVIDERS: ADMIT Internal Medicine; ATTEND Internal Medicine
PROC: B2111ZZ Fluoroscopy of Multiple Coronary Arteries using Low Osmolar Contrast (ICD-10-PCS; principal; 2016-12-30)
PROC: 4A023N7 Measurement of Cardiac Sampling and Pressure, Left Heart, Percutaneous Approach (ICD-10-PCS; principal; 2016-12-30)
PROC: B2151ZZ Fluoroscopy of Left Heart using Low Osmolar Contrast (ICD-10-PCS; principal; 2016-12-30)
DX: R07.9 Chest pain, unspecified (principal); F41.9 Anxiety disorder, unspecified; R94.31 Abnormal electrocardiogram [ECG] [EKG]; R94.39 Abnormal result of other cardiovascular function study; M25.531 Pain in right wrist; R20.2 Paresthesia of skin; E78.5 Hyperlipidemia, unspecified; B19.20 Unspecified viral hepatitis C without hepatic coma; F19.21 Other psychoactive substance dependence, in remission; G89.29 Other chronic pain; F32.9 Major depressive disorder, single episode, unspecified; Z87.440 Personal history of urinary (tract) infections; Z82.49 Family history of ischemic heart disease and other diseases of the circulatory system; Z96.651 Presence of right artificial knee joint
CPT/HCPCS: 71010; 93005; 93306; 93458; G0378; 80048-PO; 84484-PO; 85025-PO; 85378-PO; 85610-PO; 85730-PO; C1760; J1200; J1644; J2250; J2405; J3010; Q9967